=== PATIENT | female | born 1955 | race Caucasian/White ===

== ENCOUNTER 2017-04-09 11:07 | Emergency (ER) | payer MEDICARE ==
[~2017-04-09] VITALS: Ht 162.6 cm; Wt 72.7 kg
[~2017-04-09 11:07] MED LIST: SULF1TAB34 PO; VAS5 PO; ZOC20 PO; [UNRECOGNIZED DRUG - CODE] PO; [UNRECOGNIZED DRUG - OTHER] PO; ambien PO; asprin PO; magnesium oxide PO; metoprolol PO; prednisone PO; senna PO; vicodin PO
[2017-04-09 11:16] VITALS: BP 113/75; PULSE 65; RESP 18; O2SAT 95
[2017-04-09] MEDS ORDERED: CARV12.52 PO (11:30)
[2017-04-09] MEDS ORDERED: MYCO180T3 PO (11:36)
[2017-04-09] MEDS ORDERED: SIMV10TA4 PO (11:36)
[2017-04-09] MEDS ORDERED: TRAZ-115 PO (11:36)
[2017-04-09] MEDS ORDERED: TACR0.5C5 PO ×2 (11:36)
[2017-04-09] MEDS ORDERED: SERT100T PO (11:36)
[2017-04-09] MEDS ORDERED: PRD5T PO (11:36)
--- NOTE | 2017-04-09 12:00 | ED.REPORT ---
HPI-General Illness Date of Service Apr 09, 2017 ED Provider: Ernst Gomez MD Pt is a 62 y/o female w/ a hx of ESRD s/p renal transplant 12/2011, frequent UTIs , Hep C, HTN, HLD, CVA in 2003 w/ residual mild L hemiplegia, presenting to the ED with her sisters c/o generalized weakness onset last night. This morning she woke up experiencing nausea and METZ which both have resolved. She has been doing physical therapy and has been able to progress to walk independently therefore her weakness is quite abnormal. The patient is in the process of moving and has been out of her medications for 2 days. Pt denies fever, chills, cough, SOB, abdominal pain, nausea, vomiting, dysuria, back pain, change in focal weakness. She is not anticoagulated and takes ASA daily. She does have a history of frequent UTIs which have presented similarly to today's symptoms in the past. Nursing Notes Stated Complaint: WEAK,NAUSEA Chief Complaint: General Complaint Nursing Notes Reviewed: Yes Allergies: Coded Allergies: metoclopramide (Verified Allergy, Severe, Swelled mouth and tightness on throat, 05/20/13) Scheduled Carvedilol (Carvedilol) 12.5 Mg Tablet 12.5 MG PO BID Ciprofloxacin (Ciprofloxacin) 500 Mg Tablet 500 MG PO BID Mycophenolate DR (Mycophenolic DR) 180 Mg Tablet 180 MG PO BID Prednisone (PredniSONE) 5 Mg Tab 5 MG PO DAILY Sertraline HCl (Zoloft) 100 Mg Tablet 100 MG PO QAM Simvastatin (Simvastatin) 10 Mg Tablet 5 MG PO HS Tacrolimus (Tacrolimus) 0.5 Mg Capsule 1 MG PO QAM Tacrolimus (Tacrolimus) 0.5 Mg Capsule 0.5 MG PO QPM Trazodone (Trazodone) 50 Mg Tablet 50 MG PO HS General Time Seen by MD: 11:38 Chief Complaint Weakness Hx Obtained From: Patient Arrived By: Walk-in Sudden in Onset?: No Onset Occurred: Yesterday Symptom Duration: Since onset Location: : Head Quality: Aching Radiation: : Does not radiate Severity: Current: No pain currently Severity: Maximum: Moderate Recent Healthcare: No recent hospitalization Similar Sx Previous: No Past Medical History Past Medical History 1. 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. 2. Chronic active hepatitis C. Per prior notes, she has a genotype of 1a which was unsuccessful and had adverse effect with severe anemia requiring transfusion due to the interferon. 3. Hypertension. 4. Hyperlipidemia. 5. 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 6. Chronic back pain. 7. GERD. 8. History of blood transfusion in 1977. 9. Obesity. 10. Frequent UTIs Past Surgical History x2. Appendectomy. History of right AV shunt fistula and renal transplant on December 19, 2011. Family History Notable for multiple siblings with hypertension. Father of heart failure and coronary artery disease in his 50s. Mother had stroke in her 70s. Smoking History Former Smoker Social History Alcohol Use: Denies alcohol use Drug Use: Denies drug use Ambulatory Status Cane Review of Systems Full Review of Systems Constitutional: Reports: Fatigue, Weakness - generalized, Denies: Chills, Fever Respiratory: Denies: Non-productive cough, Shortness of breath Cardiovascular: Denies: Chest pain GI: Reports: Nausea, Denies: Abdominal pain, Vomiting Female: Denies: Dysuria Musculoskeletal: Denies: Back pain Neurologic: Reports: Headache, Denies: Focal weakness Complete sys rev & neg: except as marked. Physical Exam Vital Signs Vital Signs Date Time Temp Pulse Resp B/P Pulse Ox O2 Delivery O2 Flow Rate FiO2 04/09/17 15:44 36.7 78 18 155/71 98 Room Air 04/09/17 14:42 155/71 04/09/17 14:25 36.7 78 18 219/78 98 Room Air 04/09/17 11:16 36.7 65 18 113/75 95 Room Air Initial VS: Reviewed, Vital signs normal Head / Eyes: Atraumatic, Normocephalic ENT: Mucous membranes moist, Conjunctiva normal, No scleral icterus Neck: Supple, Full range of motion Respiratory: Breath sounds normal, Clear to auscultation, No respiratory distress Abdomen / GI: Soft, Non-tender Extremities: Vascular intact, No swelling Skin: Warm, Dry, No cyanosis Psychiatric: Mood/affect normal, Behavior normal, Normal thought content General/Constitutional: Awake, Alert, No acute distress, Cooperative, Not toxic appearing Cardiovascular: Heart rate NL, Regular rhythm Heart Sounds / Murmur: Positive: Systolic murmur present.. (mild, LUSB) Neurologic: Oriented X3, Speech NL, CN II - XII intact, Cerebellar NL, Memory NL LLE and LUE drift - chronic Interpretation & Diagnostics Lab Results Interpretation Result Diagram: 04/09/17 1236 04/09/17 1315 Test 04/09/17 12:36 04/09/17 13:15 04/09/17 13:19 White Blood Count 7.5th/mm3 (3.8-10.1) Red Blood Count 4.16mil/mm3 (3.90-5.20) Hemoglobin 12.0g/dL (12.0-15.6) Hematocrit 36.5% (35.0-46.0) Mean Corpuscular Volume 87.7fL (81-100) Mean Corpuscular Hemoglobin 28.8pg (27.0-35.0) Mean Corpuscular Hemoglobin Concent 32.9% (32.0-37.0) Red Cell Distribution Width 13.1% (12.3-15.4) Platelet Count 146bil/L (150-400) Neutrophils (%) (Auto) 75.4% (40-74) Lymphocytes (%) (Auto) 10.4% (14-46) Monocytes (%) (Auto) 12.8% (4-12) Eosinophils (%) (Auto) 0.8% (0-5) Basophils (%) (Auto) 0.3% (0-3) Hold Li Top Tube Received (Received) Sodium Level 139mEq/L (134-144) Potassium Level 4.2mEq/L (3.5-5.2) Chloride Level 103mEq/L (97-108) Carbon Dioxide Level 17mmol/L (18-29) Blood Urea Nitrogen 25mg/dL (8-27) Creatinine 1.77mg/dL (0.57-1.00) Estimat Glomerular Filtration Rate 42mL/min (>59) Glucose Level 107mg/dL (60-99) Calcium Level 9.3mg/dL (8.5-10.1) Magnesium Level 1.6mg/dL (1.6-2.6) Total Bilirubin 0.4mg/dL (0.0-1.2) Aspartate Amino Transf (AST/SGOT) 14U/L (0-50) Alanine Aminotransferase (ALT/SGPT) 6U/L (0-32) Alkaline Phosphatase 54U/L (25-165) Total Protein 6.5g/dL (6.4-8.4) Albumin 3.2g/dL (3.4-5.0) Urine Color Straw (YELLOW) Urine Appearance Cloudy (CLEAR,HAZY) Urine pH 6.0 (5.0-8.0) Urine Specific [place] 1.010 (1.003-1.035) Urine Protein 100mg/dL (NEG,TRACE) Urine Glucose (UA) Negativemg/dL (NEGATIVE) Urine Ketones Negativemg/dL (NEGATIVE) Urine Occult Blood Large (NEGATIVE) Urine Nitrite Negative (NEGATIVE) Urine Bilirubin Negative (NEGATIVE) Urine Urobilinogen Normalmg/dL (NORMAL) Urine Leukocyte Esterase Large (NEGATIVE) Urine RBC 3-10/hpf (0-2) Urine WBC 11-50/hpf (0-5) Urine Epithelial Cells Occasional/hpf (NONE-MOD) Urine Crystals None seen (NONE SEEN) Urine Bacteria Many/hpf (NONE-FEW) Urine Hyaline Casts None/lpf (NONE) Urine Granular Casts None seen (NONE SEEN) Urine Waxy Casts None seen (NONE SEEN) Urine Red Blood Cell Casts None seen (NONE SEEN) Urine White Blood Cell Casts None seen (NONE SEEN) Urine Mucus None seen (None Seen) Urine Trichomonas None seen (NONE SEEN) Urine Yeast None (NONE SEEN) Urinalysis Comment None Urine Culture Reflexed Indicated ECG Interpretation ECG Interpretation: Sinus rhythm rate 63 Q waves in III, V1-V3 Time: 15:08 Interpreted by: ED physician Normal ECG Interpretation: No acute ischemic changes X-Ray Chest Interpretation Chest Xray Interpretation: IMPRESSION: No acute disease, source of current weakness is not seen. Dictated by: Celestino Wang M.D. on 04/09/2017 at 12:54 Approved by: Celestino Wang M.D. on 04/09/2017 at 12:56 View: Portable, 1 view Interpretation / Wet Read by: Interpret - Radiologist CT Head Interpretation IMPRESSION: A source of weakness and nausea is not found. No hydrocephalus or brain parenchymal mass or acute stroke is found. Moderate microvascular atherosclerotic change in the deep white matter of each hemisphere, prior encephalomalacia at the baires radiata within the deep white matter of the right hemisphere. Dictated by: Celestino Wang M.D. on 04/09/2017 at 14:14 Approved by: Celestino Wang M.D. on 04/09/2017 at 14:16 Study: Head CT no contrast Interpretation / Wet Read by: Interpret - Radiologist Re-Eval/Medical Decision Med Decision/Clinical Course 62-year-old female history of renal transplant, CVA, left-sided hemiparesis due to previous CVA percent and with weakness today. She reports this is generalized. This has happened when she has had UTIs in the past. Her labs are stable. Her urine is suggestive of infection. Her CT brain shows no acute pathology. I did discuss with the patient and her family she would like to go home on oral antibiotics with plans to follow up with her primary doctor in 2 days. She will return if any signs of pyelonephritis or any other new or worsening symptoms. Time of Eval: 15:05 Re-Evaluation/Progress Note: Pt rechecked. Requesting to be dced. F/U instructions and RTER warnings given. All questions addressed. Counseled Regarding: Diagnosis, Lab results, Need for follow-up, When/why to return to ED Discharge & Departure Primary Impression: UTI (urinary tract infection) Urinary tract infection type: site unspecified Hematuria presence: without hematuria Qualified Code: N39.0 - Urinary tract infection, site not specified Additional Impression: Generalized weakness Disposition: Home Discharge Condition All VS Reviewed: Yes Condition: Stable Patient Instructions: Urinary Tract Infection in Women (ED) Additional Instructions: Your urine shows signs of infection which I suspect is causing your symptoms. Take the antibiotics as prescribed. Return to the emergency department if you experience severe abdominal or back pain, high fever, persistent vomiting, or for other concerning symptoms. Follow-up with your primary care doctor in 2-3 days for a recheck. Referrals: Misha Ogden MD (PCP) Scribe Attestation Portions of this note were transcribed by Michele Paez. I, Dr. Gomez personally performed the history, physical exam and medical decision-making; I reviewed and confirmed the accuracy of the information in the transcribed note. copies to: Misha Ogden MD, Ben M MD Apr 09, 2017 12:00 MICHELE PAEZ Apr 09, 2017 12:06
[2017-04-09 12:48] LABS: Mean Corpuscular Volume 87.7 fL (81-100)
[2017-04-09 12:49] LABS: BASOPHILS % (AUTO) 0.3 % (0-3); EOSINOPHILS % (AUTO) 0.8 % (0-5); MONOCYTES % (AUTO) 12.8 % (4-12); Mean Corpuscular Hemoglobin 28.8 pg (27.0-35.0); NEUTROPHILS % (AUTO) 75.4 % (40-74); Platelet Count 146 bil/L (150-400)
--- NOTE | 2017-04-09 12:58 | DRSVH ---
PROCEDURE: X-RAY CHEST ONE VIEW, PORTABLE ([id number]) INDICATIONS: weakness TECHNIQUE: One view of the chest was acquired. COMPARISON: [facility], CT, ABDOMEN/PELVIS WITHOUT CONTRAS, 12/15/2013, 17:30. [facility], CR, CHEST 1 VIEW, 01/27/2014, 18:45. [facility], , CHEST 2 VIEW, 01/22/2014, 13:18. FINDINGS: Surgical changes and devices: None. Lungs and pleura: No pleural effusions or pneumothorax. Lungs are clear. Mediastinum: Mediastinal contours appear normal. Prior CT scanning as documented relatively promine nt right pericardiophrenic fat, as a normal anatomic variant. Heart size is normal. Bones and chest wall: No suspicious bony lesions. Overlying soft tissues appear unremarkable. IMPRESSION: No acute disease, source of current weakness is not seen. Dictated by: Celestino Wang M.D. on 04/09/2017 at 12:54 Approved by: Celestino Wang M.D. on 04/09/2017 at 12:56
[2017-04-09 13:39] LABS: APPEARANCE,URINE CLOUDY (CLEAR,HAZY); COLOR,URINE STRAW (YELLOW)
[2017-04-09 13:40] LABS: OCCULT BLOOD,URINE LARGE (NEGATIVE); UROBILINOGEN,URINE NORMAL (NORMAL)
[2017-04-09 13:45] LABS: Magnesium 1.6 mg/dL (1.6-2.6)
--- NOTE | 2017-04-09 14:18 | DRSVH ---
PROCEDURE: CT BRAIN WITHOUT CONTRAST ([id number]) INDICATIONS: weakness h/o cva TECHNIQUE: Noncontrast 4.5 mm thick angled axial sections acquired from the foramen magnum to the vertex, with c oronal reformats. COMPARISON: [facility], CT, HEAD WITHOUT CONTRAST, 01/19/2008, 15:47. FINDINGS: Image quality: Excellent. CSF spaces: Basal cisterns are patent. No extra-axial fluid collections. Ventricles are unchanged in size and shape, slightly larger on right than the left associated with the previously documented d eep white matter baires radiata infarction seen on prior CT scanning. There is superimposed chronic mild to moderate microvascular atherosclerotic change in the deep white matter of each hemisphere. Brain: No midline shift. No intracranial masses or hemorrhage. [place]-white matter interface is norm al. Skull and face: Calvarium and visualized facial bones are intact, without suspicious lesions. Sinuses: Visualized sinuses and mastoids are clear. IMPRESSION: A source of weakness and nausea is not found. No hydrocephalus or brain parenchymal mas s or acute stroke is found. Moderate microvascular atherosclerotic change in the deep white matter of each hemisphere, prior ence phalomalacia at the baires radiata within the deep white matter of the right hemisphere. Dictated by: Celestino Wang M.D. on 04/09/2017 at 14:14 Approved by: Celestino Wang M.D. on 04/09/2017 at 14:16
[2017-04-09 14:25] VITALS: BP 219/78; PULSE 78; RESP 18; O2SAT 98
[2017-04-09 14:42] VITALS: BP 155/71
[2017-04-09] MEDS ORDERED: CIPR-198 PO (15:06)
[2017-04-09 15:44] VITALS: BP 155/71; PULSE 78; RESP 18; O2SAT 98
== END 2017-04-09 15:44 | disposition home or self-care (01) ==
LOC: SED 11:07
DX: N39.0 Urinary tract infection, site not specified (principal); R53.1 Weakness; B96.1 Klebsiella pneumoniae [K. pneumoniae] as the cause of diseases classified elsewhere; I12.0 Hypertensive chronic kidney disease with stage 5 chronic kidney disease or end stage renal disease; N18.6 End stage renal disease; E78.5 Hyperlipidemia, unspecified; K21.9 Gastro-esophageal reflux disease without esophagitis; Z87.891 Personal history of nicotine dependence; Z86.19 Personal history of other infectious and parasitic diseases; Z87.440 Personal history of urinary (tract) infections; Z86.73 Personal history of transient ischemic attack (TIA), and cerebral infarction without residual deficits; Z94.0 Kidney transplant status; Z90.89 Acquired absence of other organs; Z79.52 Long term (current) use of systemic steroids
CPT/HCPCS: 36415; 70450; 71010; 80053; 81000; 83735; 85025; 87077; 87086; 87088; 87186; 93005; 99285; J7507; J7517